=== PATIENT | male | born 1995 | race Caucasian/White ===

== ENCOUNTER 2016-11-05 23:36 | Emergency (ER) | payer OTHER ==
[2016-11-05] MEDS ORDERED: OPTIRAY 350 100 ML VIAL HMH IV ONE (23:37)
[2016-11-05] MEDS ORDERED: ONDANSETRON 4 MG VIAL ONE (23:58)
[2016-11-06] MEDS ORDERED: DICYCLOMINE 20MG/2ML VIAL IM ONE (00:10)
[2016-11-06] MEDS ORDERED: FAMOTIDINE 20 MG INJ ONE (00:11)
[2016-11-06] MEDS ORDERED: SODIUM CHLORIDE 0.9% 1,000 ML ONE (00:11)
[2016-11-06] MEDS ORDERED: ONDANSETRON 4 MG VIAL ONE ×2 (01:20→03:19)
[2016-11-06] MEDS ORDERED: SODIUM CHLORIDE 0.9% 500 ML IV ONE ×2 (01:20→03:38)
== END 2016-11-06 05:57 | disposition home or self-care (01) ==
LOC: ER 23:36
DX: R11.2 Nausea with vomiting, unspecified (principal); R19.7 Diarrhea, unspecified
CPT/HCPCS: 36415; 74177; 80053; 81001; 83690; 85025; 86677; 87088; 87804; 96360; 96361; 96372; 96374; 96375; 96376